=== PATIENT | female | born 1985 | race Caucasian/White ===

== ENCOUNTER 2023-08-03 10:54 | Outpatient (REF) | payer BC, SELFPAY ==
[2023-08-03 11:00] LABS: MANUAL DIFF FLAG NO
[2023-08-03 12:00] LABS: Basophils Absolute Auto 0.1 X10*3/uL (0.0-0.2); Basophils Percent Auto 0.8 % (0-2); Eosinophils Absolute Auto 0.2 X10*3/uL (0.0-0.4); Eosinophils Percent Auto 2.6 % (0-4); Hemoglobin 13.7 g/dl (12.0-16.0); Imm Gran Abs Auto 0.04 X10*3/uL (0.00-0.03); Imm Gran Pct Auto 0.6 % (0.0-0.4); Lymphocytes Percent Auto 31.5 % (20-40); Mean Corpuscular HGB Conc 33.4 g/dl (31.0-35.0); Mean Corpuscular Hemoglobin 30.6 pg (27.0-33.0); Mean Corpuscular Volume 91.7 fL (80.0-98.0); Monocytes Absolute Auto 0.5 X10*3/uL (0.1-1.2); Monocytes Percent Auto 7.7 % (2-11); Neutrophils Absolute Auto 3.7 x10*3/uL (2.0-8.3); Neutrophils Percent Auto 56.8 % (45-73); Platelet Count 208 X10*3/uL (160-400); Red Blood Count 4.47 X10*6/uL (4.20-5.50); Red Cell Distribution Width 11.7 % (11.0-16.0); White Blood Count 6.5 X10*3/uL (4.8-10.8)
[2023-08-03 12:02] LABS: Appearance Urine Cloudy; Color Urine Yellow; Glucose Urine UA Negative (Negative); Leukocyte Esterase Urine Moderate (2+) (Negative); Nitrite Urine Negative (Negative); PH 5.5 (5.0-9.0); UMIC TRIGGER UA YES; Urine Blood Trace (Negative); Urine Ketones Negative (Negative); Urine Protein Negative (Neg-Trace)
[2023-08-03 12:05] LABS: Bacteria Urine 2+ (None Seen); Hyaline Casts Urine 0-2 /LPF (0-2); RBC Urine 0-2 /HPF (0-2)
[2023-08-03 12:10] LABS: Alanine Aminotransferase 10 U/L (0-31); Albumin Level 3.9 g/dL (3.5-5.0); Alkaline Phosphatase 55 U/L (39-117); Anion Gap 13 (12-20); Aspartate Amino Transferase 14 U/L (5-31); Bilirubin Total 0.4 mg/dL (0.0-1.0); Blood Urea Nitrogen 14 mg/dL (9-16); Calcium 8.9 mg/dL (8.4-10.2); Carbon Dioxide 24 mmol/L (22-29); Chloride 107 mmol/L (96-108); Cholesterol 182 mg/dL (<200); Estimated Glomerular Filt Rate > 60; Glucose Fasting 93 mg/dL (60-99); HDL Cholesterol 51 mg/dL (>40); LDL Cholesterol Calculated 117 mg/dL (<100); Sodium 140 mmol/L (135-145); Total Protein 6.7 g/dL (6.5-8.0); Triglycerides 74 mg/dL (<150)
== END 2023-08-03 10:55 | disposition home or self-care (01) ==
LOC: HO.LNP 10:54
PROVIDERS: Visit Provider Internal Medicine
DX: Z00.00 Encounter for general adult medical examination without abnormal findings (principal)
CPT/HCPCS: 80053; 80061; 81001; 81003; 85025

== ENCOUNTER 2023-08-31 11:29 | Outpatient (REF) | payer BC, SELFPAY ==
[2023-08-31 12:04] LABS: Appearance Urine Cloudy; Color Urine Yellow; Glucose Urine UA Negative (Negative); Leukocyte Esterase Urine Small (1+) (Negative); Nitrite Urine Negative (Negative); Specific Gravity - Urine 1.025 (1.005-1.025); UMIC TRIGGER UACC YES; Urine Blood Negative (Negative); Urine Ketones Negative (Negative); Urine Protein Negative (Neg-Trace)
[2023-08-31 12:41] LABS: Bacteria Urine 4+ (None Seen); Hyaline Casts Urine 0-2 /LPF (0-2); UACC Culture Trigger YES
[2023-08-31 12:42] LABS: RBC Urine 0-2 /HPF (0-2)
== END 2023-08-31 11:30 | disposition home or self-care (01) ==
LOC: HO.LNP 11:29
PROVIDERS: Visit Provider Internal Medicine
DX: R31.9 Hematuria, unspecified (principal)
CPT/HCPCS: 81001; 87086

== ENCOUNTER 2024-08-04 11:35 | Outpatient (REF) | payer BC, SELFPAY ==
[2024-08-04 11:39] LABS: MANUAL DIFF FLAG NO
[2024-08-04 12:10] LABS: Basophils Absolute Auto 0.1 X10*3/uL (0.0-0.2); Basophils Percent Auto 0.9 % (0-2); Eosinophils Absolute Auto 0.2 X10*3/uL (0.0-0.4); Eosinophils Percent Auto 4.3 % (0-4); Hematocrit 39.8 % (37.0-47.0); Imm Gran Abs Auto 0.02 X10*3/uL (0.00-0.03); Imm Gran Pct Auto 0.4 % (0.0-0.4); Lymphocytes Absolute Auto 1.7 X10*3/uL (1.2-4.9); Lymphocytes Percent Auto 30.2 % (20-40); Mean Corpuscular HGB Conc 32.7 g/dl (31.0-35.0); Mean Corpuscular Hemoglobin 30.8 pg (27.0-33.0); Mean Corpuscular Volume 94.3 fL (80.0-98.0); Mean Platelet Volume 12.5 fL (9.4-12.3); Monocytes Absolute Auto 0.5 X10*3/uL (0.1-1.2); Monocytes Percent Auto 8.1 % (2-11); Neutrophils Absolute Auto 3.1 x10*3/uL (2.0-8.3); Neutrophils Percent Auto 56.1 % (45-73); Platelet Count 198 X10*3/uL (160-400); Red Blood Count 4.22 X10*6/uL (4.20-5.50); White Blood Count 5.6 X10*3/uL (4.8-10.8)
[2024-08-04 12:13] LABS: Appearance Urine Cloudy; Color Urine Yellow; Glucose Urine UA Negative (Negative); Leukocyte Esterase Urine Large (3+) (Negative); Nitrite Urine Negative (Negative); PH 5.5 (5.0-9.0); Specific Gravity - Urine 1.025 (1.005-1.025); UMIC TRIGGER UACC YES; Urine Blood Large (3+) (Negative); Urine Ketones Negative (Negative); Urine Protein Trace mg/dL (Neg-Trace)
[2024-08-04 12:25] LABS: Bacteria Urine 4+ (None Seen); Calcium Oxalate Crystals Urine Present; RBC Urine 0-2 /HPF (0-2); UACC Culture Trigger YES; WBC Urine >50 /HPF (0-5)
[2024-08-04 12:45] LABS: Alanine Aminotransferase 13 U/L (0-31); Albumin Level 3.8 g/dL (3.5-5.0); Alkaline Phosphatase 62 U/L (39-117); Anion Gap 11 (12-20); Aspartate Amino Transferase 17 U/L (5-31); Bilirubin Total 0.2 mg/dL (0.0-1.0); Blood Urea Nitrogen 25 mg/dL (9-16); Calcium 8.6 mg/dL (8.4-10.2); Carbon Dioxide 25 mmol/L (22-29); Chloride 107 mmol/L (96-108); Cholesterol 164 mg/dL (<200); Estimated Glomerular Filt Rate > 60; Glucose Fasting 101 mg/dL (60-99); HDL Cholesterol 59 mg/dL (>40); LDL Cholesterol Calculated 92 mg/dL (<100); Potassium 4.3 mmol/L (3.3-5.1); Sodium 139 mmol/L (135-145); Total Protein 6.5 g/dL (6.5-8.0); Triglycerides 68 mg/dL (<150)
== END 2024-08-04 11:36 | disposition home or self-care (01) ==
LOC: HO.LNP 11:35
PROVIDERS: Visit Provider Internal Medicine
DX: Z00.00 Encounter for general adult medical examination without abnormal findings (principal)
CPT/HCPCS: 80053; 80061; 81001; 85025; 87086

== ENCOUNTER 2025-01-23 15:23 | Outpatient (REF) | payer BC, SELFPAY ==
[2025-01-23 15:42] LABS: Blood Urea Nitrogen 19 mg/dL (9-16); Estimated Glomerular Filt Rate > 60
--- OUTSIDE RECORDS SUMMARY | 2025-01-23 17:53 | XMS_ITS ---
Author Organization Jared Auguste MD Address [address] [place], [place] [id number] Care Team Providers Care Display Carver Name Role Phone Jared Auguste Primary Care Provider Results Component Value Reference Range Notes Comprehensive [place]. Panel Fa st (Not yet reviewed by provider) Interpretation:01-23-2025 Performing Lab:[facility], [address] [place] [phone] Notes/Report: Sodium 139 135-145 mmol/L Potassium 4.3 [...] 3.5-5.0 g/dL Alkaline Phosphatase 62 39-117 U/L Complete Blood Count Auto Di ff Reviewed date:08/04/2024 12:37:00 PM Interpretation: Performing Lab:[facility], [address] [place] [phone] Notes/Report: White Blood Count 5.6 4.8-10.8 X10*3/uL [...] X10*3/uL NRBC Abs Auto 0.000 0.0-0.012 X10*3/uL Lipid Panel Reviewed date:08/04/2024 04:44:56 PM Interpretation: Performing Lab:[address] [phone] Notes/Report: Triglycerides 68 <150 mg/dL Desirable Triglyceride: [...] date:08/25/2024 01:35:27 PM Interpretation:repeat u/a 08-24-2024 Performing Lab:[facility], [address] [place] [phone] Notes/Report: Urine, Clean Catch Color Urine Yellow Appearance Urine Cloudy PH 5.5 5.0-9.0 Glucose Urine UA Negative Negative mg/dL Urine Blood Large (3+) Negative Specific [place] - Urine 1.025 1.005-1.025 Urine Protein Trace [...] Location Date Provider Diagnosis Jared Auguste MD [address] [place] [address] Drive [address] [place] [phone] 08/04/2024 Jared Auguste Blood tests for routine general physical examination Z00.00 Assessments Encounter Date Diagnosis (ICD Code) Assessment Notes Treatment Notes Treatment Clinical Notes Section Notes 08/04/2024 Blood tests for routine general physical examination (ICD-10 - Z00.00) Plan Of Treatment Pending Test Test Name Order Date Comprehensive [place]. Panel Fast Next Appt Details Provider Name:Jared brothers, 07/30/2025 10:00:00 AM, [address] [place] [address], [address], [place], [place], [phone], Provider Name:Jared Morel ier, 01/22/2026 07:45:00 AM, [address], [address], [place], [phone], Provider Name:Jared Morel ier, 01/29/2026 02:30:00 PM, [address], [address], [place], [phone], Progress Notes * Luz AUGUSTEDOB:[birth year] (39 yo F)Acc No.[id number]:08/04/2024 Progress Note Patient:?Luz AUGUSTE Provider:?Jared Auguste MD :1985???Age:39 Y???Sex:Female D ate:08/04/2024 Address:[address] [place] [address] Subjective: * Chief Complaints: * ???1. Yearly fasting labs. * Medical History:? Objective: * Vitals:? Assessment: * Assessment: 1.?Blood tests for routine g eneral physical examination - Z00.00 (Primary)??? Plan: * Treatment: * Procedure Codes:?78888 VENIP UNCT, ROUTINE* * * The named appointment provid er may or may not be the originator of this progress note, and it is not deemed complete until electronically signed by the appointment provider. Sign off status: Pending * Provider:?Jared Auguste MD Date:?1 10/05/2023 Generated for Niecy garcia/Enedina/eTransmitting on:?01/23/2025 05:53 PM EDT
== END 2025-01-23 15:24 | disposition home or self-care (01) ==
LOC: HO.LNP 15:23
PROVIDERS: Visit Provider Internal Medicine
DX: Z00.00 Encounter for general adult medical examination without abnormal findings (principal)
CPT/HCPCS: 82565; 84520

== ENCOUNTER 2025-02-05 10:38 | Outpatient (REF) | payer BC, SELFPAY ==
--- OUTSIDE RECORDS SUMMARY | 2024-08-04 03:00 | XMS_ITS ---
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 Name Role Phone Jared Auguste Primary Care Provider Results Component Value Reference Range Notes Complete Blood Count Auto Di ff Reviewed date:08/04/2024 12:37:00 PM Interpretation: Performing Lab:[facility], [address] [place] [phone] Notes/Report: White Blood Count 5.6 4.8-10.8 X10*3/uL Red Blood Count 4.22 4.20-5.50 X10*6/uL Hemoglobin 13.0 12.0-16.0 g/dl Hematocrit 39.8 37.0-47.0 % Mean Corpuscular Volume 94.3 80.0-98.0 fL Mean Corpuscular Hemoglobin 30.8 27.0-33.0 pg Mean Corpuscular HGB Conc 32.7 31.0-35.0 g/dl Red Cell Distribution Width 13.0 11.0-16.0 % Platelet Count 198 160-400 X10*3/uL Mean Platelet Volume 12.5 9.4-12.3 fL Neutrophils Percent Auto 56.1 45-73 % Imm Gran Pct Auto 0.4 0.0-0.4 % Lymphocytes Percent Auto 30.2 20-40 % Monocytes Percent Auto 8.1 2-11 % Eosinophils Percent Auto 4.3 0-4 % Basophils Percent Auto 0.9 0-2 % NRBC Pct Auto 0.0 0.0-0.2 /100WBC Neutrophils Absolute Auto 3.1 2.0-8.3 x10*3/u L Imm Gran Abs Auto 0.02 0.00-0.03 X10*3/uL Lymphocytes Absolute Auto 1.7 1.2-4.9 X10*3/u L Monocytes Absolute Auto 0.5 0.1-1.2 X10*3/uL Eosinophils Absolute Auto 0.2 0.0-0.4 X10*3/u L Basophils Absolute Auto 0.1 0.0-0.2 X10*3/uL NRBC Abs Auto 0.000 0.0-0.012 X10*3/uL Comprehensive [place]. Panel Fa st Reviewed date:01/29/2025 07:31:16 AM Interpretation:01-23-2025 Performing Lab:[facility], [address] [place] [phone] Notes/Report: Sodium 139 135-145 mmol/L Potassium 4.3 3.3-5.1 mmol/L Chloride 107 96-108 mmol/L Carbon Dioxide 25 22-29 mmol/L Anion Gap 11 12-20 Blood Urea Nitrogen 25 9-16 mg/dL Creatinine 0.74 0.5-1.4 mg/dL Estimated Glomerular Filt Rate > 60 Chronic Kidney Disease: Estimated GFR < 60 mL/min/1.73m2 Severe Kidney Disease: Estimated GFR < 15 mL/min/1.73m2 Glucose Fasting 101 60-99 mg/dL A fasting glucose from 100-125 mg/dl is considered impaired (pre-diabetes). Calcium 8.6 8.4-10.2 mg/dL Bilirubin Total 0.2 0.0-1.0 mg/dL Aspartate Amino Transferase 17 5-31 U/L Alanine Aminotransferase 13 0-31 U/L Total Protein 6.5 6.5-8.0 g/dL Albumin Level 3.8 3.5-5.0 g/dL Alkaline Phosphatase 62 39-117 U/L Lipid Panel Reviewed date:08/04/2024 04:44:56 PM Interpretation: Performing Lab:[facility], [address] [place] [phone] Notes/Report: Triglycerides 68 <150 mg/dL Desirable Triglyceride: less than 150 mg/dL Borderline High Triglyceride 150-199 mg/dL High Triglyceride: 200-499 mg/dL Very High Triglyceride: greater than or equal to 5OO mg/dL Cholesterol 164 <200 mg/dL Desirable Cholesterol: less than 200 mg/dL Borderline High Cholesterol: 200-239 mg/dL High Cholesterol: greater than 239 mg/dL LDL Cholesterol Calculated 92 <100 mg/dL Desirable LDL: less than 100 mg/dL Near Optimal/Above Optimal LDL: 110-129 mg/dL Borderline High LDL: 130-159 mg/dL High LDL: 160-189 mg/dL Very High LDL: greater than or equal to 190 mg/dL HDL Cholesterol 59 >40 mg/dL Desirable HDL: greater than 40 mg/dL Note: This HDL assay may give artificially low results in patients with liver disease. UA ClnCatch+Micro w/rflx Cul t Reviewed date:08/25/2024 01:35:27 PM Interpretation:repeat u/a 08-24-2024 Performing Lab:[facility], [address] [place] [phone] Notes/Report: Urine, Clean Catch Color Urine Yellow Appearance Urine Cloudy PH 5.5 5.0-9.0 Glucose Urine UA Negative Negative mg/dL Urine Blood Large (3+) Negative Specific [place] - Urine 1.025 1.005-1.025 Urine Protein Trace Neg-Trace mg/dL Urine Ketones Negative Negative mg/dL Nitrite Urine Negative Negative Leukocyte Esterase Urine Large (3+) Negative RBC Urine 0-2 0-2 /HPF WBC Urine >50 0-5 /HPF Squamous Epithelial Cell Urine 11-20 0-2 /HPF Calcium Oxalate Crystals Urine Present Bacteria Urine 4+ None Seen Hyaline Casts Urine 3-5 0-2 /LPF REASON FOR VISIT yearly fasting labs Encounters Encounter Location Date Provider Diagnosis Jared Auguste MD [address] [place] [address] Drive [address] [place] [phone] 08/04/2024 Jared Auguste Blood tests for routine general physical examination Z00.00 Assessments Encounter Date Diagnosis (ICD Code) Assessment Notes Treatment Notes Treatment Clinical Notes Section Notes 08/04/2024 Blood tests for routine general physical examination (ICD-10 - Z00.00) Plan Of Treatment Next Appt Details Provider Name:Jared brothers, 07/30/2025 10:00:00 AM, [address] [place] [address], [address], [place], [place], [phone], Provider Name:Jared brothers, 01/22/2026 07:45:00 AM, [address], [address], [place], [place], [phone], Provider Name:Jared Morel ier, 01/29/2026 02:30:00 PM, [address], [address], [place], [phone], Progress Notes * Luz AUG[birth year]EDOB:[birth year] (39 yo F)Acc No.[id number]:08/04/2024 Progress Note Patient: Luz ADKINS Provider: Vitaly Auguste MD :1985 A ge:39 Y S ex:Female Date:08/04/2024 Address:[address] [place] [address] Subjective: * Chief Complaints: * 1 . Yearly fasting labs. * Medical History: Objective: * Vitals: Assessment: * Assessment: 1. B lood tests for routine general physical examination - Z00.00 (Primary) Plan: * Treatment: * Procedure Codes: 3 6415 VENIPUNCT, ROUTINE* * * The named appointment provid er may or may not be the originator of this progress note, and it is not deemed complete until electronically signed by the appointment provider. Sign off status: Pending * Provider: Vitaly Auguste MD Date: 1 10/05/2023 Generated for Niecy garcia/Enedina/Randaitting on: 0 02/05/2025 11:22 AM EDT
[2025-02-05 10:45] LABS: Appearance Urine Clear; Color Urine Yellow; Glucose Urine UA Negative (Negative); Leukocyte Esterase Urine Negative (Negative); Nitrite Urine Negative (Negative); PH >= 9.0 (5.0-9.0); Urine Blood Negative (Negative); Urine Ketones Negative (Negative); Urine Protein Negative (Neg-Trace)
[2025-02-05 10:48] LABS: Bacteria Urine Trace (None Seen); Hyaline Casts Urine 0-2 /LPF (0-2); RBC Urine 0-2 /HPF (0-2); WBC Urine 0-5 /HPF (0-5)
== END 2025-02-05 10:39 | disposition home or self-care (01) ==
LOC: HO.LNP 10:38
PROVIDERS: Visit Provider Internal Medicine
DX: R31.9 Hematuria, unspecified (principal)
CPT/HCPCS: 81001